=== PATIENT | male | born 1980 | race Caucasian/White ===

== ENCOUNTER 2024-04-13 15:08 | Emergency (ER) | payer MEDICARE ==
[2024-04-13 15:19] VITALS: TEMP 97.1
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
[2024-04-13] MEDS ORDERED: Depo-Medrol 80 MG/ML ONE (15:41)
[2024-04-13] MEDS: Depo-Medrol 80 MG/ML IM ONE (15:43)
[2024-04-13] MEDS: Robaxin PO PRN (15:57)
[2024-04-13 16:13] VITALS: BP 124/69; PULSE 60; RESP 16
[2024-04-14 23:29] VITALS: O2SAT 98
== END 2024-04-13 16:17 | disposition home or self-care (01) ==
LOC: ED 15:08
DX: M25.552 Pain in left hip (principal); M54.32 Sciatica, left side; E78.5 Hyperlipidemia, unspecified; I10 Essential (primary) hypertension; Z79.52 Long term (current) use of systemic steroids; Z79.891 Long term (current) use of opiate analgesic; Z79.02 Long term (current) use of antithrombotics/antiplatelets; Z79.899 Other long term (current) drug therapy; Z72.0 Tobacco use
CPT/HCPCS: 96372; 99283; J1010; A9270-GY